=== PATIENT | male | born 1990 | race Caucasian/White ===

== ENCOUNTER 2022-03-17 20:20 | Emergency (ER) | payer MEDICAID ==
[2022-03-17] MEDS: Lidocaine 1% 5 ML VIAL INJECT ONE (20:33)
[2022-03-17] MEDS: Bacitracin/Neomycin/Polymyxin B Oint 0.9 GM U/D Packet TOP ONE (20:33)
== END 2022-03-17 21:14 | disposition home or self-care (01) ==
LOC: CC.ED 20:20
DX: S61.313A Laceration without foreign body of left middle finger with damage to nail, initial encounter (principal); Z79.899 Other long term (current) drug therapy; W26.0XXA Contact with knife, initial encounter
CPT/HCPCS: 12001; 99282